=== PATIENT | female | born 1955 | race Caucasian/White ===

== ENCOUNTER 2019-10-30 02:30 | Emergency (ER) | payer BC ==
[~2019-10-30] VITALS: Ht 167.6 cm; Wt 80.7 kg
[~2019-10-30 02:30] MED LIST: APAP/HYDROCODON1 T13 PO; COL100 PO; PANTOPRAZOLE TAB 40M PO; SIMVASTATIN40 M1 PO; ZOCOR40 MG PO; [UNRECOGNIZED DRUG - OTHER]
[2019-10-30 02:47] LABS: BASOPHIL % 0.6 % (0-2); PLATELET COUNT 296 x10^3mcL (130-400); RED CELL DISTRIBUTION WIDTH 13.5 % (11.5-14.5)
[2019-10-30 02:55] LABS: CARBON DIOXIDE 21.9 mmol/L (21-32); CREATININE SERUM 1.1 mg/dL (0.6-1.0); POTASSIUM SERUM 3.6 mmol/L (3.5-5.1)
[2019-10-30 02:59] LABS: ALBUMIN 3.9 g/dL (3.4-5.0); BILIRUBIN TOTAL 0.3 mg/dL (0.20-1.00); TOTAL PROTEIN, SERUM 7.3 g/dL (6.4-8.2)
[2019-10-30 06:05] VITALS: BP 115/51
== END 2019-10-30 06:05 | disposition home or self-care (01) ==
LOC: ED 02:30
PROVIDERS: Emergency Medicine
DX: A05.9 Bacterial foodborne intoxication, unspecified (principal); K52.9 Noninfective gastroenteritis and colitis, unspecified; H81.10 Benign paroxysmal vertigo, unspecified ear; K21.9 Gastro-esophageal reflux disease without esophagitis; G43.909 Migraine, unspecified, not intractable, without status migrainosus; Z88.2 Allergy status to sulfonamides
CPT/HCPCS: J2405; J2765; J7030; J8597